=== PATIENT | male | born 1990 | race Two or more races ===

== ENCOUNTER 2019-01-03 17:19 | Emergency (ER) | payer SELFPAY ==
[~2019-01-03] VITALS: Ht 188 cm; Wt 109.3 kg
[2019-01-03 17:36] VITALS: BP 137/80
[2019-01-03] MEDS ORDERED: HYDROcodone-ACET 5/325MG TAB PO ONE (21:15)
== END 2019-01-03 21:45 | disposition home or self-care (01) ==
LOC: ER 17:19
DX: S16.1XXA Strain of muscle, fascia and tendon at neck level, initial encounter (principal); V49.59XA Passenger injured in collision with other motor vehicles in traffic accident, initial encounter; Y93.89 Activity, other specified; Y99.8 Other external cause status; Y92.410 Unspecified street and highway as the place of occurrence of the external cause
CPT/HCPCS: 72040